=== PATIENT | male | born 1950 | race Hispanic/Latino ===

== ENCOUNTER 2024-03-15 12:58 | Emergency (ER) | payer OTHER ==
[~2024-03-15] VITALS: Ht 175.3 cm; Wt 81.6 kg
[2024-03-15] MEDS: Solu-medROL 125MG VIAL IVP ONE (13:12)
[2024-03-15 13:21] LABS: BASOPHILS # (AUTO) 0.01 K/uL (0.00-0.20); BASOPHILS % (AUTO) 0.2 % (0.0-5.0); EOSINOPHILS # (AUTO) 0.09 K/uL (0.00-0.70); EOSINOPHILS % (AUTO) 1.8 % (0.0-8.0); HEMATOCRIT 44.3 % (42-54); IMMATURE GRANULOCYTE ABSOLUTE 0.01 K/uL (0-1); LYMPHOCYTES # (AUTO) 1.6 K/uL (1.0-4.8); LYMPHOCYTES % (AUTO) 32.9 % (21.0-51.0); MEAN CORPUSCULAR HGB CONC 33.6 g/dL (32.0-36.0); MEAN CORPUSCULAR VOLUME 95.3 fL (79-99); MONOCYTES # (AUTO) 0.4 K/uL (0.1-1.0); MONOCYTES % (AUTO) 7.2 % (3.0-13.0); NEUTROPHILS # (AUTO) 2.8 K/uL (1.8-7.7); NEUTROPHILS % (AUTO) 57.7 % (40.0-77.0); PLATELET COUNT (AUTO) 197 K/uL (130-400); RED BLOOD CELL COUNT(AUTO) 4.65 MIL/uL (4.50-6.20); RED CELL DISTRIBUTION WIDTH 12.8 % (11.0-15.5); WHITE BLOOD COUNT (AUTO) 4.9 K/uL (4.8-10.8)
[2024-03-15 13:29] LABS: CREATININE 0.8 mg/dL (0.5-1.3)
[2024-03-15 13:40] VITALS: PULSE 75; RESP 20
[2024-03-15] MEDS: IpraTROPium/alBUTERol SULFATE 3 ML SOLUTION IH ONE (13:40)
[2024-03-15 13:50] LABS: INR 1.01 (0.85-1.15); PROTHROMBIN TIME 10.9 SEC (9.6-11.6)
[2024-03-15 13:51] LABS: PARTIAL THROMBOPLASTIN TIME 26.8 SEC (26.3-35.5)
[2024-03-15] MEDS: 0.9%NACL 1000ML 1,000 ML IV ONE (13:51)
[2024-03-15 15:24] VITALS: BP 118/76; PULSE 72; RESP 17; TEMP 98.4; O2SAT 98
== END 2024-03-15 15:54 | disposition home or self-care (01) ==
LOC: EDH 12:58
DX: M79.675 Pain in left toe(s) (principal); E11.9 Type 2 diabetes mellitus without complications; I10 Essential (primary) hypertension; M79.661 Pain in right lower leg
CPT/HCPCS: 99285; 96374; 93971; 96361; 84484; 80048; 85025; 85384; 85610; 85730; 36415; 93005; 94640; J7030; J2919